=== PATIENT | female | born 1950 | race Caucasian/White ===

== ENCOUNTER 2025-03-24 17:02 | Inpatient (IN) | payer MEDICARE ==
[2025-03-24] MEDS ORDERED: Ondansetron PF 4 MG/2 ML Vial IVP PRN (18:45)
[2025-03-24] MEDS ORDERED: Electrolyte Replacement Protocol 1 EACH FS SCH (18:45)
[2025-03-24] MEDS ORDERED: Guaifenesin DM 100-10/5 ML UDCUP PO PRN (18:45)
[2025-03-24] MEDS ORDERED: Potassium Chloride 20 MEQ in Premix 1 BAG IVPB PRN (19:00)
[2025-03-24] MEDS ORDERED: PHOS-NAK 1 PKT PACK PO PRN (19:00)
[2025-03-24] MEDS ORDERED: Magnesium Sulfate In Water 4 GM in Premix 1 BAG IVPB PRN (19:00)
[2025-03-24] MEDS: Acetaminophen 325 MG TAB PO SCH (20:03)
[2025-03-24 21:50] VITALS: BMI 25.0
[2025-03-25] MEDS: Acetaminophen 325 MG TAB PO SCH (00:06)
[2025-03-25 00:44] LABS: Bacteria/HPF None Seen HPF (None Seen); Glucose, Urine (Dipstick) Normal (Negative); Leukocyte Negative Leu/uL (Negative); Protein, Urine (Dipstick) 30 mg/dL (Neg-Trace); RBC/HPF None Seen HPF (0-3); Specific Gravity, Urine 1.017 (1.002-1.036); WBC/HPF 0-3 HPF (0-3)
[2025-03-25 06:53] LABS: #Basophils 0.05 10x3/uL (0.0-0.2); #Eosinophils 0.29 10x3/uL (0.0-0.7); #Monocytes 0.94 10x3/uL (0.11-0.59); #Neutrophils 7.30 10x3/uL (1.40-6.50); %Basophils 0.5 % (0.0-1.0); %Eosinophils 2.9 % (0.0-10.0); %Lymphocytes 13.2 % (21.0-51.0); %Monocytes 9.5 % (0.0-10.0); %Neutrophils 73.4 % (42.0-75.0); Hematocrit 22.8 % (36.0-47.0); Hemoglobin 7.0 g/dL (12.0-16.0); Mean Corpuscular Hemoglobin 27.6 pg (27.0-31.0); Mean Corpuscular Volume 89.8 fL (78.0-98.0); Platelet Count 281 10x3/uL (130-400); Red Blood Cell (RBC) Count 2.54 mill/uL (4.20-5.40); White Blood Cell (WBC) Count 9.94 10x3/uL (4.8-10.8)
[2025-03-25 07:09] LABS: Anion Gap 12 mmol/L (10-20); BUN (Urea Nitrogen) 32 mg/dL (9.8-20.1); Calc. Creatinine Clearance 44 mL/min (70-130); Calcium 8.4 mg/dL (7.8-10.44); Carbon Dioxide 21 mmol/L (23-31); Chloride 108 mmol/L (98-107); Glucose 85 mg/dL (83-110); Potassium 4.1 mmol/L (3.5-5.1); Sodium 137 mmol/L (136-145)
[2025-03-25] MEDS ORDERED: Sodium Hypochlorite 0.25% Solution 480 ML BOT TOP SCH (08:15)
[2025-03-25] MEDS ORDERED: Enoxaparin 40 MG (0.4 mL) SYRINGE SC SCH (09:00)
[2025-03-25 09:19] LABS: Hematocrit 24.0 % (36.0-47.0); Hemoglobin 7.2 g/dL (12.0-16.0); Platelet Count 294 10x3/uL (130-400)
[2025-03-25 09:35] LABS: Iron 12 ug/dL (50-170); Iron Binding Capacity, Total 185 mcg/dL (265-497)
[2025-03-25 09:36] LABS: INR-International Normal Ratio 1.2; Prothrombin Time 15.0 sec (12.0-14.7)
[2025-03-25 09:37] LABS: PTT 40.3 sec (22.9-36.1)
[2025-03-25] MEDS ORDERED: PROPOFOL 20 ML ONE (09:38)
[2025-03-25] MEDS ORDERED: Ondansetron PF 4 MG/2 ML Vial ONE (09:39)
[2025-03-25] MEDS ORDERED: Lidocaine 1% PF 5 ML VIAL ONE (09:39)
[2025-03-25] MEDS ORDERED: PHENYLEPHRINE-NS 100 MCG/ML 10 ML SYRINGE ONE (10:27)
[2025-03-25] MEDS ORDERED: fentaNYL PF 100 MCG/2 ML SYRINGE ONE (10:54)
[2025-03-25] MEDS: Multivitamin W/ Minerals 1 TAB PO SCH (11:48)
[2025-03-25] MEDS: Aspirin 81 mg Enteric Coated Tablet PO SCH (11:49)
[2025-03-25] MEDS: Ferrous Sulfate 325 MG TAB PO SCH (11:49)
[2025-03-25] MEDS: Amiodarone 200 MG TAB PO SCH (11:49)
[2025-03-25] MEDS: Pentoxifylline 400 MG ER.TAB PO SCH (11:49)
[2025-03-25] MEDS: Cyanocobalamin (Vitamin B-12) 1,000 MCG TAB PO SCH (20:41)
[2025-03-25] MEDS: Folic Acid 1 MG TAB PO SCH (20:41)
[2025-03-25] MEDS: Thiamine 100 MG TAB PO SCH (20:41)
[2025-03-25] MEDS: Cholecalciferol 1,000 UNITS (25 MCG) TAB PO SCH (20:41)
[2025-03-25] MEDS: Melatonin 3 MG TAB PO SCH (20:41)
[2025-03-26 06:25] LABS: #Basophils 0.05 10x3/uL (0.0-0.2); #Eosinophils 0.18 10x3/uL (0.0-0.7); #Monocytes 0.67 10x3/uL (0.11-0.59); #Neutrophils 10.18 10x3/uL (1.40-6.50); %Basophils 0.4 % (0.0-1.0); %Eosinophils 1.5 % (0.0-10.0); %Lymphocytes 6.1 % (21.0-51.0); %Monocytes 5.6 % (0.0-10.0); %Neutrophils 85.7 % (42.0-75.0); Hematocrit 24.3 % (36.0-47.0); Hemoglobin 7.4 g/dL (12.0-16.0); Mean Corpuscular Hemoglobin 27.2 pg (27.0-31.0); Mean Corpuscular Volume 89.3 fL (78.0-98.0); Platelet Count 324 10x3/uL (130-400); Red Blood Cell (RBC) Count 2.72 mill/uL (4.20-5.40); White Blood Cell (WBC) Count 11.89 10x3/uL (4.8-10.8)
[2025-03-26 06:47] LABS: Carbon Dioxide 22 mmol/L (23-31); Chloride 109 mmol/L (98-107); Potassium 4.0 mmol/L (3.5-5.1); Sodium 136 mmol/L (136-145)
[2025-03-26 06:48] LABS: ALT (SGPT) 24 U/L (Less than 34); AST (SGOT) 22 U/L (11-34); Albumin 2.1 g/dL (3.1-4.5); Alkaline Phosphatase 122 U/L (40-110); Anion Gap 9 mmol/L (10-20); BUN (Urea Nitrogen) 24 mg/dL (9.8-20.1); Bilirubin, Total 0.2 mg/dL (0.3-1.2); Calc. Creatinine Clearance 49 mL/min (70-130); Calcium 8.8 mg/dL (7.8-10.44); Globulin 3.5 g/dL (2.4-3.5); Glucose 107 mg/dL (83-110); Magnesium 2.0 mg/dL (1.6-2.6)
[2025-03-26 08:56] VITALS: BMI 25.0
[2025-03-26] MEDS: Sodium Ferric Gluconate 250 MG in Sodium Chloride 0.9% 250 ML 250 ML IVPB SCH (12:08)
[2025-03-27 05:57] LABS: #Basophils 0.09 10x3/uL (0.0-0.2); #Eosinophils 0.43 10x3/uL (0.0-0.7); #Monocytes 0.69 10x3/uL (0.11-0.59); #Neutrophils 7.78 10x3/uL (1.40-6.50); %Basophils 0.9 % (0.0-1.0); %Eosinophils 4.3 % (0.0-10.0); %Lymphocytes 8.9 % (21.0-51.0); %Monocytes 6.9 % (0.0-10.0); %Neutrophils 78.2 % (42.0-75.0); Hematocrit 26.2 % (36.0-47.0); Hemoglobin 7.7 g/dL (12.0-16.0); Mean Corpuscular Hemoglobin 26.6 pg (27.0-31.0); Mean Corpuscular Volume 90.7 fL (78.0-98.0); Platelet Count 389 10x3/uL (130-400); Red Blood Cell (RBC) Count 2.89 mill/uL (4.20-5.40); White Blood Cell (WBC) Count 9.96 10x3/uL (4.8-10.8)
[2025-03-27 06:19] LABS: Anion Gap 12 mmol/L (10-20); BUN (Urea Nitrogen) 21 mg/dL (9.8-20.1); Calc. Creatinine Clearance 49 mL/min (70-130); Calcium 9.1 mg/dL (7.8-10.44); Carbon Dioxide 23 mmol/L (23-31); Chloride 109 mmol/L (98-107); Glucose 97 mg/dL (83-110); Potassium 3.7 mmol/L (3.5-5.1); Sodium 140 mmol/L (136-145)
[2025-03-27] MEDS: DC Electrolyte Protocol FS ONE (11:19)
[2025-03-27 15:59] VITALS: BP 126/79; TEMP 98.4
[2025-03-27] MEDS ORDERED: Magnesium Oxide 400 MG TAB PO SCH (21:00)
== END 2025-03-27 20:10 | DRG 579 ==
LOC: T4-B 18:11
PROVIDERS: ADMIT Hospitalist; ATTEND Internal Medicine
PROC: 0QB10ZZ Excision of Sacrum, Open Approach (ICD-10-PCS; principal; 2025-03-24)
DX: L89.154 Pressure ulcer of sacral region, stage 4 (principal); E43 Unspecified severe protein-calorie malnutrition; I96 Gangrene, not elsewhere classified; N18.2 Chronic kidney disease, stage 2 (mild); I48.0 Paroxysmal atrial fibrillation; Z79.899 Other long term (current) drug therapy; D64.9 Anemia, unspecified; Z68.25 Body mass index [BMI] 25.0-25.9, adult; I10 Essential (primary) hypertension; Z79.82 Long term (current) use of aspirin
CPT/HCPCS: 36415; 36416; 80048; 80053; 81001; 82728; 83540; 83550; 83605; 83735; 84100; 84134; 85025; 85610; 85730; 86850; 86900; 86901; 87070; 87077; 87186; 87205; 97139; J2405; J2543; J2704; J2916; J7030; J7050